=== PATIENT | male | born 1965 | race Caucasian/White ===

== ENCOUNTER → 2024-06-12 10:03 | Outpatient (REF) | payer OTHER, SELFPAY | LOC: HWRCS 10:03 | PROVIDERS: ATTENDING PHYSICIAN Nuclear Medicine Nuclear Cardiology; FAMILY PHYSICIAN Family Medicine | DX: Z95.1 Presence of aortocoronary bypass graft (principal); I42.9 Cardiomyopathy, unspecified; Z95.810 Presence of automatic (implantable) cardiac defibrillator; I25.2 Old myocardial infarction; Z98.61 Coronary angioplasty status | CPT/HCPCS: 93306 ==

== ENCOUNTER → 2025-06-07 07:03 | Outpatient (REF) | payer OTHER, SELFPAY | LOC: HWRCS 07:03 | PROVIDERS: ATTENDING PHYSICIAN Nuclear Medicine Nuclear Cardiology; FAMILY PHYSICIAN Family Medicine | DX: Z95.1 Presence of aortocoronary bypass graft (principal); I25.2 Old myocardial infarction; R06.02 Shortness of breath; I42.9 Cardiomyopathy, unspecified; E78.5 Hyperlipidemia, unspecified | CPT/HCPCS: 93306 ==